=== PATIENT | female | born 1955 | race Caucasian/White ===

== ENCOUNTER → 2020-12-06 12:35 | Outpatient (CLI) | payer BC ==
[2013-09-05 06:30] VITALS: BMI 26.5
[~2020-12-06 12:35] MED LIST: MOTRIN400 MG; MULTIPLE VITAMI1 TA1 PO; NORCO 10/325 TA1 TA1 PO; PREMARIN1.25 MG PO; ZOLOFT100 MG PO
== END | disposition home or self-care (01) ==
LOC: D.HCCECHO 12:35
PROVIDERS: ATTEND Internal Medicine Cardiovascular Disease
DX: R00.2 Palpitations (principal)